=== PATIENT | female | born 1950 | race African-American/Black ===

== ENCOUNTER 2024-02-18 22:00 | Emergency (ER) | payer OTHER ==
[~2024-02-18] VITALS: Ht 165.1 cm; Wt 60.0 kg
[2024-02-18 22:02] VITALS: O2SAT 100
[2024-02-18] MEDS ORDERED: OLANZAPINE 10 MG/VIAL IM STA (23:25)
[2024-02-18 23:56] LABS: BASOPHILS % 1.1 % (0.0-2.0); DIFFERENTIAL COMMENT 0; EOSINOPHILS % 2.9 % (0.0-5.0); HEMATOCRIT. 35.6 % (36.0-48.0); HEMOGLOBIN. 11.3 g/dL (12.0-16.0); LYMPHOCYTES % 25.9 % (20.0-50.0); MEAN CORPUSCULAR HEMOGLOBIN 24.9 pg (28.0-32.0); MEAN CORPUSCULAR HGB CONC 31.6 g/dL (31.0-37.0); MEAN CORPUSCULAR VOLUME 78.9 fL (81.0-99.0); MONOCYTES % 8.6 % (2.0-8.0); NEUTROPHILS % 61.5 % (40.0-76.0); PLATELET 144 x1000/uL (130-400); RED BLOOD CELL COUNT 4.51 mill/uL (4.2-5.4); WHITE BLOOD COUNT 5.2 x1000/uL (4.5-11.0)
[2024-02-18] MEDS: OLANZAPINE 10 MG/VIAL IM NR (23:56)
[2024-02-18] MEDS: SODIUM CHLORIDE 0.9% 1,000 ML IV ONE (23:56)
[2024-02-19 00:05] LABS: CHLORIDE 113 mEq/L (98-107); POTASSIUM 3.9 mEq/L (3.5-5.1); SODIUM 145 mEq/L (136-145)
[2024-02-19 00:06] LABS: CARBON DIOXIDE 25 mEq/L (21-32)
[2024-02-19 00:11] LABS: CREATININE 0.9 mg/dL (0.6-1.0); GLUCOSE 84 mg/dL (70-105); UREA NITROGEN BLOOD 18 mg/dL (9-23)
[2024-02-19 00:13] LABS: ALANINE AMINOTRANSFERASE 10 IU/L (10-49); ALBUMIN 4.2 g/dL (3.2-4.8); AMMONIA < 17 uMol/L (<32); ASPARTATE AMINOTRANSFERASE 19 IU/L (<34); BILIRUBIN TOTAL 0.9 mg/dL (0.1-1.0); PROTEIN TOTAL 6.9 g/dL (6.0-8.3)
[2024-02-19 00:23] LABS: BG CARBOXYHEMOGLOBIN 0.3 % (0.5-1.5); BG DEOXYHEMOGLOBIN 5.2 % (0.0-5.0); BG HCO3 ACT 21.3 mmol/L (22.0-26.0); BG OXYGEN SATURATION 94.8 % (92.0-98.5); BG OXYHEMOGLOBIN 94.5 % (94.0-97.0); BG PCO2 35.2 mmHg (35.0-45.0); BG PH 7.399 (7.350-7.450); BG SAMPLE SITE RIGHT RADIAL; BG TOTAL HEMOGLOBIN 11.4 g/dL (12.0-18.0); BG VENT MODE ROOM AIR
[2024-02-19 00:48] LABS: TROPONIN I HIGH SENSITIVITY 9 ng/L (3.0-34)
[2024-02-19 07:47] VITALS: BP 151/60; PULSE 77; RESP 15; TEMP 98.6
== END 2024-02-19 08:32 | disposition short-term general hospital (02) ==
LOC: ER 22:00 → EDBEDREQTM 02-19 06:56 → EDBEDREQ 02-19 06:56 → ER 02-19 08:32 → CANBEDREQ 02-19 08:47
DX: G93.40 Encephalopathy, unspecified (principal); F03.90 Unspecified dementia, unspecified severity, without behavioral disturbance, psychotic disturbance, mood disturbance, and anxiety; Z86.73 Personal history of transient ischemic attack (TIA), and cerebral infarction without residual deficits
CPT/HCPCS: 80053; 80320; 82140; 83605; 85025; 84484; 36415 ×2; 71045; 93005; 96372; 99285; 70450; J3490; J7030; G0480